=== PATIENT | female | born 1965 | race Two or more races ===

== ENCOUNTER 2023-02-13 22:06 | Inpatient (IN) | payer OTHER ==
[~2023-02-13] VITALS: Ht 33 cm; Wt 60.8 kg
--- NOTE | 2023-02-13 22:17 | NUR ---
PACIENTE ALERTA Y ORIENTADA X 3, ACOMPANADA DE HIJA. HIJA REFIERE ALREDEDOR DE LAS 9PM SINTIO ADORMECIMIENTO EN LADO IZQ DE LA JENNIFER Y DEBILIDAD. REFIERE DOLOR DE WALLY.
[2023-02-13] MEDS ORDERED: SYNTHROID75 MCG PO (22:24)
[2023-02-13] MEDS ORDERED: SIMVASTATIN10 MG PO (22:24)
--- NOTE | 2023-02-14 01:30 | NUR ---
1:30AM: SE RECIBE FEMINA ALERTA Y ORIENTADA X3 EN EL AREA DE CHEST PAIN, SE UBICA PACIENTE EN CAMA #17. SE CONECTA A MONITOR CARDIACO Y OXIMETRIA DE PULSO. SE ANUJA S/V. SE CANALIZA PACIENTE BAJO MEDIDAS ASEPTICAS EN ANTEBRAZO ULISES CON ANGIO #20, EL MISMO SE ENCUENTRA PATENTE, JOSIAH DE EDEMA Y ERITEMA. SE LE REALIZA EKG Y SE LE PRESENTA A DR WINSLOW. 1:50AM: DR WINSLOW ORDENA COLOCAR TRIDIL 50MG/[id number]% BAJANDO A 1ML/HR. SE EJECUTA ORDEN MEDICA. SE LE ADMINISTRAN MEDICAMENTO PO TYLOR ORDEN. PACIENTE TOLERA. SE MANTIENE PACIENTE BAJO OBSERVACION POR CAMBIOS EN TRATAMIENTO MEDICO. PENDIENTE COLECTA DE TROPONINAS A LAS 4:00AM.
--- NOTE | 2023-02-14 04:20 | NUR ---
SE COLECTA MUESTRA DE LABORATORIO PENDIENTE. SE MANTIENE PACIENTE BAJO OBSERVACION POR CAMBIOS EN TRATAMIENTO MEDICO.
--- NOTE | 2023-02-14 08:25 | NUR ---
SE RECIBRE PTE ALERTA Y ORIENTADO POR 3, PTE EN CAMA CON BARANDAS ELEVADA Y TIMBRE ACCESIBLE PTE CONECTADA A MONITOR CARDIACO Y OXYMETRIA DE PULSO SE OBSERVA VENOPUNCION PATENTE Y JOSIAH DE EDEMA PTE SE MANTIENE EN OBSERVACION Y BAJO TRATAMIENTO EN ESPERA DE DRA MORGAN
[2023-02-16] MEDS ORDERED: LIPITOR20 MG PO (13:45)
[2023-02-16] MEDS ORDERED: SYNTHROID88 MCG PO (13:45)
[2023-02-16] MEDS ORDERED: FAMOTIDINE20 MG PO (13:45)
[2023-02-16] MEDS ORDERED: ST. JOSEPH ASPI81 M2 PO (13:45)
== END 2023-02-16 14:34 | disposition home or self-care (01) | DRG 69 ==
LOC: ER 22:06 → MEDI 02-14 09:48 → MEDJ 02-14 09:48 → MEDI 02-15 10:23
PROVIDERS: ADMIT Internal Medicine; ATTEND Internal Medicine
PROC: BW28ZZZ Computerized Tomography (CT Scan) of Head (ICD-10-PCS; principal; 2023-02-13)
PROC: B030ZZZ Magnetic Resonance Imaging (MRI) of Brain (ICD-10-PCS; 2023-02-14)
PROC: B343ZZ3 Ultrasonography of Right Common Carotid Artery, Intravascular (ICD-10-PCS; 2023-02-14)
PROC: B246ZZZ Ultrasonography of Right and Left Heart (ICD-10-PCS; 2023-02-14)
PROC: 4A12X4Z Monitoring of Cardiac Electrical Activity, External Approach (ICD-10-PCS; 2023-02-15)
DX: G45.9 Transient cerebral ischemic attack, unspecified (principal); R77.8 Other specified abnormalities of plasma proteins; E78.49 Other hyperlipidemia; E03.8 Other specified hypothyroidism
CPT/HCPCS: 70553